=== PATIENT | female | born 1960 | race Hispanic/Latino ===

== ENCOUNTER 2020-02-09 19:58 | Emergency (ER) | payer OTHER ==
[~2020-02-09] VITALS: Ht 157.5 cm; Wt 72.6 kg
[2020-02-09] MEDS ORDERED: FAMOTIDINE 20 MG/2 ML VIAL IV STA (21:43)
[2020-02-09] MEDS ORDERED: IOPAMIDOL 370 MG/ML 200 ML INFUS..BTL INJ ONE (23:18)
[2020-02-09] MEDS ORDERED: SODIUM CHLORIDE 0.9% 50ML 50 ML ONE (23:18)
[2020-02-09] MEDS ORDERED: FAMOTIDINE 20 MG/2 ML VIAL IV ONE (23:36)
[2020-02-10] MEDS ORDERED: ONDANSETRON ODT8 MG PO (00:26)
[2020-02-10] MEDS ORDERED: TYLENOL # 31 EA PO (00:28)
[2020-02-10 00:34] VITALS: BP 151/84
== END 2020-02-10 00:34 | disposition home or self-care (01) ==
LOC: FSED 20:01
DX: R10.11 Right upper quadrant pain (principal); K80.80 Other cholelithiasis without obstruction; D72.829 Elevated white blood cell count, unspecified; I10 Essential (primary) hypertension; R94.31 Abnormal electrocardiogram [ECG] [EKG]
CPT/HCPCS: 74177; 80053; 81003; 82553; 84484; 85025; 93005; 96374; 99284; Q9967